=== PATIENT | male | born 1970 | race Caucasian/White ===

== ENCOUNTER → 2016-09-04 | Outpatient (CLI) | payer OTHER | LOC: CIMAGING 11:36 | PROVIDERS: ATTEND Internal Medicine | DX: R05 Cough (principal) | CPT/HCPCS: 71020-PO ==

== ENCOUNTER → 2017-01-11 | Outpatient (CLI) | payer OTHER | LOC: CIMAGING 15:25 | PROVIDERS: ATTEND Internal Medicine | DX: M19.071 Primary osteoarthritis, right ankle and foot (principal) | CPT/HCPCS: 73630-PO ==

== ENCOUNTER → 2017-06-21 | Outpatient (CLI) | payer OTHER | LOC: CIMAGING 11:18 | PROVIDERS: ATTEND Internal Medicine | DX: M25.511 Pain in right shoulder (principal) | CPT/HCPCS: 73050-PO ==